=== PATIENT | female | born 1945 | race Caucasian/White ===

== ENCOUNTER 2022-01-15 22:46 | Inpatient (IN) ==
[2022-01-15] MEDS ORDERED: Ondansetron 4 MG/2 ML VIAL IVP ONE (23:24)
[2022-01-15] MEDS ORDERED: 0.9 % Sodium Chloride 500 ML IVC ONE (23:28)
[2022-01-15 23:51] LABS: Basophils % 0.4 %; Eosinophils # 0.1 K/mcL (0.0-0.6); Eosinophils % 1.6 %; Hematocrit 32.7 % (35.3-44.9); Hemoglobin 10.7 g/dL (11.5-15.4); Immature Granulocytes % 0.4 % (0-4); Lymphocytes # 0.9 K/mcL (0.6-4.6); Lymphocytes % 11.4 %; Mean Corpuscular HGB Conc 32.7 g/dL (31.6-35.5); Mean Corpuscular Hemoglobin 30.5 pg (28.0-33.3); Mean Corpuscular Volume 93.2 fL (83.0-100.0); Mean Platelet Volume 11.5 fL (9.4-12.4); Monocytes # 0.7 K/mcL (0.0-1.3); Monocytes % 8.2 %; Neutrophils # 6.3 K/mcL (1.6-8.9); Platelet Count 218 K/mcL (140-400); Red Blood Count 3.51 M/mcL (3.82-4.97); Red Cell Distribution Width 14.3 % (11.5-14.5)
[2022-01-15 23:56] LABS: INR 1.1; Prothrombin Time 12.8 Seconds (9.4-12.1)
[2022-01-15 23:59] LABS: Activated Partial Thrombo Time 32.2 Seconds (26.0-36.0)
[2022-01-16] LABS: Alanine Aminotransferase 16 Units/L (7-52); Albumin 3.1 g/dL (3.5-5.7); Albumin/Globulin Ratio 1.1 (1.1-2.2); Alkaline Phosphatase 78 Units/L (34-104); Aspartate Amino Transferase 29 Units/L (13-39); BUN/Creatinine Ratio 22 (6-26); Bilirubin,Total 0.7 mg/dL (0.3-1.0); Blood Urea Nitrogen 17 mg/dL (8-23); Calcium 8.7 mg/dL (8.6-10.3); Carbon Dioxide 28 mEq/L (23-29); Chloride 106 mEq/L (98-107); Globulin 2.8 g/dL (2.4-3.5); Glucose 123 mg/dL (70-105); Osmolality,Calculated 295 (280-300); Potassium 3.9 mEq/L (3.5-5.1); Sodium 141 mEq/L (136-145); Total Protein 5.9 g/dL (6.4-8.9); Troponin I < 0.03 ng/mL (< 0.04); eGFR For African Americans > 60 (> 60); eGFR For Non-African Americans > 60 (> 60)
[2022-01-16 01:19] LABS: Influenza A PCR Negative (Negative); Influenza B PCR Negative (Negative); Resp. Syncytial Virus PCR Negative (Negative)
[2022-01-16 01:23] LABS: SARS-CoV-2 by PCR (In House) Negative (Negative)
[2022-01-16] MEDS ORDERED: Isovue-370 500 ML BOTTLE IVP ONE (02:09)
[2022-01-16] MEDS ORDERED: 0.9 % Sodium Chloride 500 ML IVC ONE (03:01)
[2022-01-16] MEDS ORDERED: Ondansetron 4 MG/2 ML VIAL IM ONE (03:15)
[2022-01-16] MEDS ORDERED: Ondansetron 4 MG/2 ML VIAL IVP ONE (03:19)
[2022-01-16] MEDS ORDERED: Naloxone 0.4 MG/ML INJ IVP PRN (04:52)
[2022-01-16] MEDS ORDERED: Melatonin 3 MG TABLET PO PRN (04:52)
[2022-01-16] MEDS ORDERED: Ketorolac 30 MG/ML VIAL IVP SCH (12:00)
[2022-01-16] MEDS: Ondansetron 4 MG/2 ML VIAL IVP PRN (12:26)
[2022-01-16] MEDS ORDERED: *HR* OxyCODONE Immed Rel 5 MG TABLET PO PRN (13:45)
[2022-01-16] MEDS: *HR* Heparin 5,000 UNIT/ML VIAL SQ SCH ×2 (15:42→22:01)
[2022-01-16] MEDS: polyethylene glycoL 3350 17 GM POWD.PACK PO SCH (15:43)
[2022-01-16] MEDS: Aspirin Enteric Coated 81 MG Tablet PO SCH (22:00)
[2022-01-17 01:22] LABS: Basophils % 0.6 %; Eosinophils # 0.2 K/mcL (0.0-0.6); Eosinophils % 3.7 %; Hematocrit 31.5 % (35.3-44.9); Hemoglobin 10.1 g/dL (11.5-15.4); Immature Granulocytes % 0.3 % (0-4); Lymphocytes # 1.5 K/mcL (0.6-4.6); Mean Corpuscular HGB Conc 32.1 g/dL (31.6-35.5); Mean Corpuscular Hemoglobin 30.1 pg (28.0-33.3); Mean Platelet Volume 10.9 fL (9.4-12.4); Monocytes # 0.7 K/mcL (0.0-1.3); Monocytes % 11.4 %; Platelet Count 227 K/mcL (140-400); Red Blood Count 3.35 M/mcL (3.82-4.97); Red Cell Distribution Width 14.3 % (11.5-14.5); White Blood Count 6.5 K/mcL (4.3-11.1)
[2022-01-17 01:43] LABS: BUN/Creatinine Ratio 17 (6-26); Blood Urea Nitrogen 17 mg/dL (8-23); Calcium 8.5 mg/dL (8.6-10.3); Carbon Dioxide 28 mEq/L (23-29); Chloride 105 mEq/L (98-107); Glucose 104 mg/dL (70-105); Magnesium 1.9 mg/dL (1.6-2.6); Osmolality,Calculated 290 (280-300); Phosphorous 3.8 mg/dL (2.7-4.5); Potassium 4.4 mEq/L (3.5-5.1); Sodium 139 mEq/L (136-145); eGFR For African Americans > 60 (> 60); eGFR For Non-African Americans 54 (> 60)
[2022-01-17 01:56] LABS: Thyroid Stimulating Hormone 3.781 mcIU/mL (0.340-5.600)
[2022-01-17 02:06] LABS: Folate 15.1 ng/mL (3.0-16.0)
[2022-01-17] MEDS: *HR* Heparin 5,000 UNIT/ML VIAL SQ SCH ×3 (05:21→21:22)
[2022-01-17] MEDS: Aspirin Enteric Coated 81 MG Tablet PO SCH ×2 (08:37→21:20)
[2022-01-17] MEDS: Anastrozole 1 MG TABLET PO SCH (08:37)
[2022-01-17] MEDS: polyethylene glycoL 3350 17 GM POWD.PACK PO SCH (08:37)
[2022-01-17 15:06] LABS: Bilirubin,Urine Negative (Negative); Blood,Urine Negative (Negative); Clarity,Urine Clear (Clear); Color,Urine Light-Yellow (Yellow); Glucose,Urine (UA) Normal (Normal); Ketones,Urine Negative (Negative); Leukocyte Esterase,Urine Negative (Negative); Nitrite,Urine Negative (Negative); Protein,Urine Negative (Neg-Trace); Specific Gravity,Urine 1.012 (1.010-1.025); Urobilinogen,Urine Normal (Normal)
[2022-01-18] MEDS: *HR* Heparin 5,000 UNIT/ML VIAL SQ SCH ×3 (05:54→20:54)
[2022-01-18] MEDS: Aspirin Enteric Coated 81 MG Tablet PO SCH ×2 (07:50→20:54)
[2022-01-18] MEDS: polyethylene glycoL 3350 17 GM POWD.PACK PO SCH (07:50)
[2022-01-18] MEDS: Anastrozole 1 MG TABLET PO SCH (07:50)
[2022-01-18] MEDS: Ondansetron 4 MG/2 ML VIAL IVP PRN (07:58)
[2022-01-19] MEDS: *HR* Heparin 5,000 UNIT/ML VIAL SQ SCH ×3 (05:36→21:17)
[2022-01-19] MEDS ORDERED: Cyanocobalamin (B-12) 1,000 MCG/ML VIAL SQ ONE (07:38)
[2022-01-19] MEDS: polyethylene glycoL 3350 17 GM POWD.PACK PO SCH (08:07)
[2022-01-19] MEDS: Anastrozole 1 MG TABLET PO SCH (08:08)
[2022-01-19] MEDS: Aspirin Enteric Coated 81 MG Tablet PO SCH ×2 (08:08→21:17)
[2022-01-19 08:54] LABS: Hematocrit 38.4 % (35.3-44.9)
[2022-01-19 08:55] LABS: Hemoglobin 11.9 g/dL (11.5-15.4)
[2022-01-19 09:14] LABS: % Iron Saturation 14 % (15-50); Iron 45 mcg/dL (50-170); Transferrin 230 mg/dL (203-362)
[2022-01-19 09:29] LABS: Ferritin 188 ng/mL (10-120)
[2022-01-20] MEDS: *HR* Heparin 5,000 UNIT/ML VIAL SQ SCH (05:42)
[2022-01-20 06:52] VITALS: BP 114/71; PULSE 75; TEMP 98; O2SAT 97
[2022-01-20] MEDS: Aspirin Enteric Coated 81 MG Tablet PO SCH (07:57)
[2022-01-20] MEDS: Anastrozole 1 MG TABLET PO SCH (07:57)
[2022-01-20] MEDS: polyethylene glycoL 3350 17 GM POWD.PACK PO SCH (07:57)
== END 2022-01-20 12:08 | disposition home or self-care (01) | DRG 149 ==
LOC: EMEROOARM 22:46 → 3BNU 22:46 → SUATTDRO 01-16 04:49 → 3BNU 01-16 05:30 → SUATTDRO 01-17 14:32
PROVIDERS: ADMIT Student in an Organized Health Care Education/Training Program; ATTEND Internal Medicine